=== PATIENT | female | born 2000 | race Caucasian/White ===

== ENCOUNTER 2020-02-21 21:27 | Emergency (ER) | payer MEDICAID, SELFPAY ==
[2020-02-21 21:35] VITALS: BP 138/62; PULSE 88; RESP 16; TEMP 36.8; O2SAT 99; BMI 43.7
--- NOTE | 2020-02-21 22:17 | [facility].EDALLER ---
ED Disposition Clinical Impression: Allergic reaction Qualifiers: Encounter type: initial encounter Qualified Code(s): T78.40XA - Allergy, unspecified, initial encounter Qualifiers: Weeks of gestation: less than 8 weeks Qualified Code(s): Z3A.01 - Less than 8 weeks gestation of Disposition: Home, Self-Care Condition on Discharge: Good Instructions: DI for Rash Additional Instructions: call pcp and ob in am and use meds as directed Prescriptions: predniSONE [Prednisone 20mg Tab] 10 mg PO BID #4 tab Referrals: Provider,Referral, MD [Primary Care Provider] - - Critical Care Critical Care Time: No Attestation: On 02/21/20, the high probability of a clinically significant, sudden or life threatening deterioration of the following system(s) required my full and direct attention, intervention and personal management. The time I documented below is in addition to time spent performing reported procedures but includes the following listed in this critical care notation. Medical Decision Making - Medical Records Medical records reviewed: Yes: I reviewed the patient's medical records. - Jacky Inquiry Pt receiving controlled substance: No Vital Signs: 02/21/20 21:35 Temperature 98.2 F Temperature Source Oral Pulse Rate [Left] 88 Respiratory Rate 16 Blood Pressure [Right Arm] 138/62 Blood Pressure Mean [Right Arm] 87 Blood Pressure Source [Right Arm] Automatic Cuff Blood Pressure Position [Right Arm] Sitting 02 Sat by Pulse Oximetry 99 Oxygen Delivery Method Room Air - Physician Consults Physician Consulted: teddy Reason -: Pt condition Allergic React/Insect Bite HPI - General Chief complaint: Allergic Reaction Stated complaint: facial redness Time Seen by Provider: 02/21/20 22:00 Mode of Arrival - ED Triage: Ambulatory Source of Information: Patient, Medical Record Limitations: No Limitations - History of Present Illness HPI narrative: after using beauty mask has facial reddness and tingling complaint: allergic reaction Onset (ago): hour(s) Exposure: medication Symptoms: itching, facial swelling Treatment prior to arrival: none Allergies/Adverse Reactions: Allergies Allergy/AdvReac Type Severity Reaction Status Date / Time piperacillin [From Zosyn] Allergy Verified 02/21/20 22:18 tazobactam [From Zosyn] Allergy Verified 02/21/20 22:18 Severity: moderate - Related Data Previous Rx's Medication Instructions Recorded predniSONE [Prednisone 20mg 10 mg PO BID #4 tab 02/21/20 Tab] [facility] History - Hepatitis A Screen Drug use history?: No High risk sexual behaviors?: No History of sexually transmitted infection?: No Currently employed?: No Childcare worker?: No Do you have indoor plumbing?: Yes Do you have electricity?: Yes Attestation statement:: This patient has been screened for Hepatitis A risk factors. I have reviewed the patient's past medical history: Yes Medical History: Denies:: Diabetes Mellitus Type 1, Diabetes Mellitus Type 2 - Social History Alcohol Intake: never Occupational Status: unemployed ROS Obtained: Yes All systems reviewed & no additional complaints - Constitutional Constitutional: Denies fever(s) - Eyes Eyes: Denies change in vision - ENT Ears, Nose, Mouth, and Throat: Denies sore throat - Cardiovascular Cardiovascular: Denies chest pain - Respiratory Respiratory: No cough - Gastrointestinal Gastrointestingal: Denies: abdominal pain - Genitourinary Female Genitourinary: Denies hematuria - Musculoskeletal Musculoskeletal: Denies joint pain - Integumentary/Breasts Skin/Breast: Reports as per HPI, Reports redness, Reports rash - Neurologic Neurologic: Denies focal weakness, Denies seizure-like activity Physical Exam - General General appearance: alert - Head Head exam: normocephalic - Eye Eye exam: Present: PERRL, EOMI - ENT ENT exam: Present: normal oropha
[2020-02-21 22:28] VITALS: BP 154/84; PULSE 87; RESP 16; TEMP 36.8; O2SAT 99
== END 2020-02-21 22:31 | disposition home or self-care (01) ==
PROVIDERS: Emergency Provider Emergency Medicine
DX: T78.40XA Allergy, unspecified, initial encounter (principal); Z3A.01 Less than 8 weeks gestation of pregnancy; Z88.8 Allergy status to other drugs, medicaments and biological substances
CPT/HCPCS: 99282